=== PATIENT | female | born 1950 | race Caucasian/White ===

== ENCOUNTER 2025-06-10 19:45 | Emergency (ER) | payer MEDICARE, BC, SELFPAY ==
[2025-06-10 19:48] VITALS: BP 181/114; PULSE 90; RESP 16; TEMP 36.6; O2SAT 96
--- NOTE | 2025-06-10 20:01 | W.ED.GENAD ---
Discharge Plan Disposition Patient Disposition: Home Condition: Good Discharge Details Clinical Impression: Laceration of leg Primary Care Provider: Unknown,Unknown ED Provider: Bea Flynn Home Meds and New Rx's Prescriptions: No Action gabapentin 300 mg capsule 300 mg PO DAILY Discharge Instructions Additional Instructions: Please enjoy the rest of your trip! Your wound should heal well with careful wound care. Your tdap was updated today You had 7 horizontal mattress and 7 simple interrupted sutures placed. Please have them removed in 7 to 10 days. This can be done at primary care or urgent care. Please wash daily with antibacterial soap and water. Apply a thin layer of triple antibiotic ointment or bacitracin to help prevent infection. Apply clean nonstick dressing. You may use Tylenol or ibuprofen as needed for discomfort. You may use cool compresses and elevation of the leg to help prevent swelling. Keep an eye out for signs of infection such as redness, swelling, pus drainage, foul odor, or increasing pain. If you notice any of these, please seek care immediately. HPI General Date/Time Provider Initiated Documentation: 06/10/25 19:59. HPI Narrative: Konstantin is a 54-year-old female who presents to the emergency department today for evaluation of right nunez laceration. Reports that she walked into the end of the bed at the hotel this evening, applied pressure dressing to control bleeding and came to the emergency department right away. She is able to ambulate without difficulty. She denies distal numbness/tingling, current use of anticoagulation, or chronic medical problems. Last tetanus was in 2016, is open to having a booster today Related Data Home Medications ?Medication ?Instructions ?Recorded ?Confirmed gabapentin 300 mg capsule 300 mg PO DAILY 06/10/25 06/10/25 Allergies Allergy/AdvReac Type Severity Reaction Status Date / Time No Known Allergies Allergy Verified 06/10/25 19:53 General Stated Complaint: Laceration JANY: 3 Exam Narrative Exam Narrative: General Appearance: Normal. Alert and oriented, no acute distress Vital signs: Hypertension noted, this was improved after pain control. Skin: 4 cm x 5 cm V shaped laceration to right nunez extends through subcutaneous layer. Bleeding well-controlled with gauze. + CMS to toes. Psychiatric: Normal. Course Vital Signs Vital signs: Vital Signs Temperature 36.6 C 06/10/25 19:48 Pulse 90 06/10/25 19:48 Respiratory Rate 16 06/10/25 19:48 Blood Pressure 181/114 H 06/10/25 19:48 Pulse Oximetry 96 06/10/25 19:48 Temperature 36.6 C 06/10/25 19:48 Temperature Source Temporal Artery Scan 06/10/25 19:48 Pulse 90 06/10/25 19:48 Respiratory Rate 16 06/10/25 19:48 Blood Pressure 181/114 H 06/10/25 19:48 Blood Pressure Position Sitting 06/10/25 19:48 Pulse Oximetry 96 06/10/25 19:48 Oxygen Delivery Method Room Air 06/10/25 19:48 Oxygen Flow Rate 0 06/10/25 19:48 Pain Level 6 06/10/25 19:54 Medical Decision Making Initial Assessment: 74-year-old female with leg laceration. No red flags concerning for neurovascular compromise, foreign bodies, or open fracture requiring diagnostic imaging ED Course: - Applied pressure dressing with epinephrine and lidocaine with good anesthetic effect; no additional injectable lidocaine required - Administered 650 mg Tylenol - Irrigated wound - Administered tetanus shot - Horizontal mattress sutures and simple interrupted sutures placed after extensive irrigation, chlorhexidine prep, and examination to the base in a bloodless field. Final Assessment: Leg laceration treated with horizontal mattress sutures after irrigation and numbing with lidocaine. No prophylactic antibiotics needed. Tetanus shot administered. Clinical Impression: Uncomplicated leg laceration Disposition: Discharge instructions with patient, including wound care, follow-up instructions, and red flags indicate need for return to emergency care Patient Education: Apply nonstick dressing, secure with Coban. No prophylactic antibiotics needed. Tetanus shot administered. Patient consented to the use of [facility] All Active Problems (Updated 06/10/25 @ 21:36 by Bea Tariq) Laceration of leg (Acute) Social History Smoking/Tobacco Use Status: Never Smoking risk assessment performed?: Yes Alcohol Intake: never Drug use: Never Substance use type: does not use Do you feel safe at home: Yes Do you feel safe in your relationship?: Yes
[2025-06-10] MEDS: Diph,Pertuss(Acell),Tet Vac/Pf 0.5 ML SYR IM (20:07)
[2025-06-10] MEDS: Lidocaine/Epinephri/Tetracaine Topical Gel 3 ML TP (20:09)
[2025-06-10] MEDS: Acetaminophen 325 MG TAB 650 MG PO (20:09)
[2025-06-10 21:46] VITALS: BP 153/82; PULSE 80; RESP 16; O2SAT 96
== END 2025-06-10 21:47 | disposition home or self-care (01) ==
PROVIDERS: Emergency Provider Nurse Practitioner Family
DX: S81.811A Laceration without foreign body, right lower leg, initial encounter (principal); W22.8XXA Striking against or struck by other objects, initial encounter; Z23 Encounter for immunization
CPT/HCPCS: 99283; 99284; 12004; 90471; 90715